=== PATIENT | female | born 1965 | race Caucasian/White ===

== ENCOUNTER 2019-09-04 15:31 | Emergency (ER) | payer BC ==
[~2019-09-04] VITALS: Ht 167.6 cm; Wt 66.4 kg
[2019-09-04 15:34] VITALS: TEMP 98.4
[2019-09-04] MEDS ORDERED: NORCO 325 MG-51 TAB PO (18:02)
[2019-09-04 18:14] VITALS: BP 128/75; PULSE 73
== END 2019-09-04 18:17 | disposition home or self-care (01) ==
LOC: COL.ER 15:31
DX: S69.92XA Unspecified injury of left wrist, hand and finger(s), initial encounter (principal); F41.9 Anxiety disorder, unspecified; F17.210 Nicotine dependence, cigarettes, uncomplicated; Z98.890 Other specified postprocedural states; W18.39XA Other fall on same level, initial encounter; Y92.009 Unspecified place in unspecified non-institutional (private) residence as the place of occurrence of the external cause; Y93.68 Activity, volleyball (beach) (court)
CPT/HCPCS: Q4050